=== PATIENT | female | born 1985 | race Caucasian/White ===

== ENCOUNTER 2019-03-10 23:43 | Emergency (ER) | payer SELFPAY ==
[2019-03-10] MEDS ORDERED: predniSONE 20 MG Tab PO ONE (23:49)
[2019-03-10] MEDS ORDERED: Albuterol/Ipratropium 3.0-0.5 MG/3 ML Neb Soln NEB ONE (23:49)
[2019-03-10] MEDS ORDERED: Ketorolac 60 MG/2 ML SDV IM ONE (23:50)
--- NOTE | 2019-03-10 23:53 | EDM.PDOC ---
ED HPI GENERAL MEDICAL PROBLEM - General Chief Complaint: Respiratory Problem Stated Complaint: ASTHMA ATTACK Time Seen by Provider: 03/10/19 23:45 - History of Present Illness INITIAL COMMENTS - FREE TEXT/NARRATIVE: HISTORY AND PHYSICAL: History of present illness: The patient is a 33-year-old female with a history of asthma who also continues to use tobacco and presents with onset of right-sided chest pain associated with shortness of breath and feeling like her asthma is kicking in. The patient says that she has not received steroids for about a year and a half as her asthma has been well controlled and she usually has an inhaler when she gets a flareup but she hasn't had one for a few months. Patient tells me that if she had had her inhaler she might of been able to interrupt this but her attacks usually come on very suddenly and this is similar only she's having more significant right-sided chest wall pain with breath. She denies any abdominal pain fever or flank pain and urinary complaints. She has no history of trauma. She has an occasional dry cough. She's been eating and drinking normally and has not use anything specifically for the pain. She has no nausea or vomiting and no other significant past medical history. Review of systems: As per history of present illness and below otherwise all systems reviewed and negative. Past medical history: As per history of present illness and as reviewed below otherwise noncontributory. Surgical history: As per history of present illness and as reviewed below otherwise noncontributory. Social history: No reported history of drug or alcohol abuse. Family history: As per history of present illness and as reviewed below otherwise noncontributory. Physical exam: General: Well-developed well-nourished female who is nontoxic and vital signs are noted by me. She is speaking clearly without breathlessness HEENT: Atraumatic, normocephalic, pupils reactive, throat is clear without any exudates and there is no erythema, there is no cervical adenopathy or nuchal rigidity no thyromegaly and no visible or audible sinus drainage. Lungs: Diminished breath sounds bilaterally more in the bases with some tight expiratory wheezing appreciated bilaterally, there is no stridor or work of breathing, breath sounds are equal bilaterally and there is no discrete chest wall tenderness specifically on the right Heart: Regular rate and rhythm normal S1 and S2 no overt murmurs Abdomen: Soft, nondistended, with tenderness on palpation of the right upper quadrant without rebound or guarding. Bowel sounds are normoactive Negative for masses or hepatosplenomegaly. Negative for costovertebral tenderness. Pelvis: Deferred Genitourinary: Deferred. Rectal: Deferred. Extremities: Atraumatic, negative for cords or calf pain. Neurovascular unremarkable. No pedal edema or leg asymmetry Neuro: Awake, alert, oriented. Cranial nerves II through XII unremarkable. Cerebellum unremarkable. Motor and sensory unremarkable throughout. Exam nonfocal. Diagnostics: Chest x-ray CBC CMP amylase lipase Therapeutics: DuoNeb prednisone Toradol spacer with teaching On reevaluation the patient is moving air significantly better and says she is feeling significantly improved and has almost no pain now. I discussed with her the discomfort in the right upper quadrant on my exam and her labs are within normal limits but I do think that she needs to a low-fat diet and follow up if the pain persists or any other symptoms occur. She'll like a prescription for an inhaler as well as prednisone and giving her rather than [employer] Meds. She has been given a spacer here with teaching Impression: Right chest pain/acute asthma exacerbation, medication refill, right upper quadrant pain stable Definitive disposition and diagnosis as appropriate pending reevaluation and review of above. right rib Pain Score (Numeric/FACES): 6 - Related Data Allergies Allergy/AdvReac Type Severity Reaction Status Date / Time amoxicillin Allergy Rash Verified 03/10/19 23:48 Home Meds: Home Meds . [No Known Home Meds] 10/25/18 [History] Past Medical History - Past Health History Medical/Surgical History: Denies Medical/Surgical History - Infectious Disease History Infectious Disease History: Reports: None Social & Family History - Tobacco Use Smoking Status *Q: Current Every Day Smoker Years of Tobacco use: 10 Packs/Tins Daily: 1 - Caffeine Use Caffeine Use: Reports: Coffee - Recreational Drug Use Recreational Drug Use: No ED ROS GENERAL - Review of Systems Review Of Systems: ROS reveals no pertinent complaints other than HPI. ED EXAM, GENERAL - Physical Exam Exam: See Below (See dictation) Course - Vital Signs Last Recorded V/S: Last Vital Signs Temp 36.4 C 03/10/19 23:43 Pulse 69 03/10/19 23:43 Resp 18 03/10/19 23:43 BP 129/81 03/10/19 23:43 Pulse Ox 100 03/10/19 23:43 - Orders/Labs/Meds Orders: Active Orders 24 hr Category Date Time Status RT Aerosol Therapy [RC] ASDIRECTED Care 03/10/19 23:49 Active Labs: Laboratory Tests 03/11/19 03/11/19 Range/Units 00:26 00:26 WBC 12.37 H (4.0-11.0) K/uL RBC 4.58 (4.30-5.90) M/uL Hgb 13.6 (12.0-16.0) g/dL Hct 41.4 (36.0-46.0) % MCV 90.4 (80.0-98.0) fL MCH 29.7 (27.0-32.0) pg MCHC 32.9 (31.0-37.0) g/dL RDW Std Deviation 43.8 (28.0-62.0) fl RDW Coeff of Tonya 13 (11.0-15.0) % Plt Count 272 (150-400) K/uL MPV 9.00 (7.40-12.00) fL Neut % (Auto) 58.5 (48.0-80.0) % Lymph % (Auto) 33.1 (16.0-40.0) % Lyman % (Auto) 6.6 (0.0-15.0) % Eos % (Auto) 1.7 (0.0-7.0) % Baso % (Auto) 0.1 (0.0-1.5) % Neut # (Auto) 7.2 H (1.4-5.7) K/uL Lymph # (Auto) 4.1 H (0.6-2.4) K/uL Lyman # (Auto) 0.8 (0.0-0.8) K/uL Eos # (Auto) 0.2 (0.0-0.7) K/uL Baso # (Auto) 0.0 (0.0-0.1) K/uL Nucleated RBC % 0.0 /100WBC Nucleated RBCs # 0 K/uL Sodium 141 (136-145) mmol/L Potassium 3.5 (3.5-5.1) mmol/L Chloride 102 (98-107) mmol/L Carbon Dioxide 28.2 (21.0-32.0) mmol/L BUN 18 (7.0-18.0) mg/dL Creatinine 1.0 (0.6-1.0) mg/dL Est Cr Clr Drug Dosing 67.43 mL/min Estimated GFR (MDRD) > 60.0 ml/min Glucose 98 (74-106) mg/dL Calcium 8.8 (8.5-10.1) mg/dL Total Bilirubin 0.2 (0.2-1.0) mg/dL AST 14 L (15-37) IU/L ALT 29 (14-63) IU/L Alkaline Phosphatase 67 (46-116) U/L Total Protein 7.4 (6.4-8.2) g/dL Albumin 3.6 (3.4-5.0) g/dL Globulin 3.8 (2.6-4.0) g/dL Albumin/Globulin Ratio 0.9 (0.9-1.6) Amylase 96 (25-115) U/L Lipase 191 (73-393) U/L Meds: Medications Discontinued Medications Generic Name Dose Route Start Last Admin Trade Name Christianoq PRN Reason Stop Dose Admin Albuterol/Ipratropium 3 ml 03/10/19 23:49 03/11/19 00:01 Duoneb 3.0-0.5 Mg/3 Ml NEB 03/10/19 23:50 3 ml ONETIME ONE Administration Ketorolac Tromethamine 60 mg 03/10/19 23:50 03/10/19 23:59 Toradol IM 03/10/19 23:51 60 mg ONETIME ONE Administration Prednisone 20 mg 03/10/19 23:49 03/10/19 23:59 Prednisone PO 03/10/19 23:50 20 mg ONETIME ONE Administration Departure - Departure Time of Disposition: 01:09 Disposition: Home, Self-Care 01 Condition: Good Clinical Impression: Right upper quadrant pain Asthma exacerbation Qualifiers: Asthma severity: mild Asthma persistence: unspecified Qualified Code(s): J45.901 - Unspecified asthma with (acute) exacerbation - Discharge Information Referrals: PCP,None [Primary Care Provider] - Forms: ED Department Discharge Additional Instructions: The following information is given to patients seen in the emergency department who are being discharged to home. This information is to outline your options for follow-up care. We provide all patients seen in our emergency department with a follow-up referral. The need for follow-up, as well as the timing and circumstances, are variable depending upon the specifics of your emergency department visit. If you don't have a primary care physician on staff, we will provide you with a referral. We always advise you to contact your personal physician following an emergency department visit to inform them of the circumstance of the visit and for follow-up with them and/or the need for any referrals to a consulting specialist. The emergency department will also refer you to a specialist when appropriate. This referral assures that you have the opportunity for followup care with a specialist. All of these measure are taken in an effort to provide you with optimal care, which includes your followup. Under all circumstances we always encourage you to contact your private physician who remains a resource for coordinating your care. When calling for followup care, please make the office aware that this follow-up is from your recent emergency room visit. If for any reason you are refused follow-up, please contact the [facility] emergency department at and ask to speak to the emergency department charge nurse. [facility] Primary care- [place] [address] Please contact the clinic Tuesday morning at 8:00 and be specific in saying that your name is on the extubated follow-up list. Please use the inhaler as directed for the next 2 days and then as needed afterwards and take the prednisone as prescribed. Push hydration and try to reduce and/or quit smoking. Please eat a low-fat diet and return to ER as needed and as we discussed. - My Orders Last 24 Hours: My Active Orders 03/10/19 23:49 RT Aerosol Therapy [RC] ASDIRECTED - Assessment/Plan Last 24 Hours: My Active Orders 03/10/19 23:49 RT Aerosol Therapy [RC] ASDIRECTED
--- NOTE | 2019-03-11 00:51 | CR ---
Indication: Shortness of breath Technique: Chest 2 views Comparison: None Findings: Cardiovascular and mediastinum: Heart size and vasculature are normal in caliber and appearance. Lungs and pleural spaces: Lungs are clear. No sign of infiltrate or mass. No sign of pleural effusion. No pneumothorax. Bones and soft tissues: No significant findings. Impression: Normal two view chest. Dictated by Will Lucas MD @ Mar 11 2019 12:48AM Signed by Dr. Will Lucas @ Mar 11 2019 12:49AM
[2019-03-11 00:52] LABS: CHLORIDE,CL 102 mmol/L (98-107); SODIUM,NA 141 mmol/L (136-145)
== END 2019-03-11 01:26 | disposition home or self-care (01) ==
LOC: MW.ED 23:43
DX: J45.901 Unspecified asthma with (acute) exacerbation (principal); Z76.0 Encounter for issue of repeat prescription; F17.210 Nicotine dependence, cigarettes, uncomplicated; Z88.1 Allergy status to other antibiotic agents
CPT/HCPCS: 36415; 71046; 80053; 82150; 83690; 85025; 96372; 99285; A9270; J1885; 99284; J7620-GY